=== PATIENT | male | born 1990 | race Caucasian/White ===

== ENCOUNTER 2017-07-31 15:14 | Emergency (ER) | payer BC, OTHER ==
[~2017-07-31] VITALS: Ht 180.3 cm; Wt 74.8 kg
[2017-07-31 15:15] VITALS: BP_SYST 103
[2017-07-31] MEDS ORDERED: DIPH-TET-PERTUS Vaccine 0.5 ML VIAL (ADACEL) I.M. ONE (16:00)
[2017-07-31] MEDS ORDERED: MORPHINE 2 MG/ML INJ. SYRINGE IM ONE ×2 (16:00→16:15)
[2017-07-31] MEDS ORDERED: LIDOCAINE 2%, 20 ML MDV INJ ONE (16:00)
[2017-07-31] MEDS ORDERED: MORPHINE SULFATE 10 MG/ML VIAL ONE (16:10)
[2017-07-31] MEDS ORDERED: DIPHENHYDRAMINE INJ 50 MG/ML VIAL IM ONE (16:15)
[2017-07-31] MEDS ORDERED: DIPH-TET Vacc 0.5 ML VIAL I.M. ONE (16:30)
[2017-07-31] MEDS ORDERED: fentaNYL CITRATE/PF 100 MCG/2 ML AMP ONE (16:47)
[2017-07-31] MEDS ORDERED: BACITRACIN 1 GM OINT TP ONE (17:30)
[2017-07-31 18:25] VITALS: BP_SYST 110
== END 2017-07-31 18:25 | disposition home or self-care (01) ==
LOC: SED 15:14
DX: S61.112A Laceration without foreign body of left thumb with damage to nail, initial encounter (principal); W31.89XA Contact with other specified machinery, initial encounter; Y93.89 Activity, other specified; Y92.89 Other specified places as the place of occurrence of the external cause; Y99.8 Other external cause status
CPT/HCPCS: 73130; 90471; 90714; 90715; 96372; 99284; J1200; J2001; J2270; J3010

== ENCOUNTER 2017-08-03 13:41 | Emergency (ER) | payer OTHER ==
[~2017-08-03] VITALS: Ht 180.3 cm; Wt 74.8 kg
[2017-08-03 13:53] VITALS: BP_SYST 100
[2017-08-03] MEDS ORDERED: BACITRACIN 1 GM OINT TP ONE (17:30)
[2017-08-03 17:41] VITALS: BP_SYST 108
== END 2017-08-03 17:41 | disposition home or self-care (01) ==
LOC: SED 13:41
DX: M79.645 Pain in left finger(s) (principal)
CPT/HCPCS: 99282

== ENCOUNTER 2017-08-13 13:15 | Emergency (ER) | payer OTHER ==
[~2017-08-13] VITALS: Ht 180.3 cm; Wt 74.8 kg
[2017-08-13 13:22] VITALS: BP_SYST 110
[2017-08-13] MEDS ORDERED: IBUPROFEN 800 MG TABLET ONE (15:03)
[2017-08-13] MEDS ORDERED: IBUPROFEN 800 MG TABLET PO ONE (15:30)
[2017-08-13] MEDS ORDERED: BACITRACIN 1 GM OINT TP ONE (15:30)
[2017-08-13 15:45] VITALS: BP_SYST 110
== END 2017-08-13 15:45 | disposition home or self-care (01) ==
LOC: SED 13:15
DX: S61.012D Laceration without foreign body of left thumb without damage to nail, subsequent encounter (principal); X58.XXXD Exposure to other specified factors, subsequent encounter
CPT/HCPCS: 99283